=== PATIENT | male | born 1935 | race Caucasian/White ===

== ENCOUNTER 2018-09-07 14:08 | Observation (INO) | payer OTHER ==
[~2018-09-07] VITALS: Ht 177.8 cm; Wt 55.5 kg
[~2018-09-07 14:08] MED LIST: ALBU90OI6 INH; ALPR.5 PO; AMIT10 PO; CARB100 PO; CARBLEV25 PO; CHOL10002; Calicum 500+D1 EACH PO; DIAZ5 PO; FINA5 PO; FISH1000 PO; HYDCHL50 PO; LEVCAR25ER PO; LOSA25 PO; LOSARTAN-HCTZ1 EAC1 PO; LOSHYD100 PO; OXYB5 PO; RAPAFLO 8MG; RAPAFLO PO; STALEVO; TERB250 PO; TIOT18 IH; VENL25 PO
[2018-09-07 14:39] LABS: BASOPHILS ABSOLUTE AUTO 0.02 K/mm3 (0.00-0.23); BASOPHILS PERCENT AUTO 0 % (0-2); EOSINOPHILS ABSOLUTE AUTO 0.12 K/mm3 (0.00-0.68); EOSINOPHILS PERCENT AUTO 2 % (0-6); Hematocrit 35.8 % (37.0-53.0); Hemoglobin 11.4 g/dL (13.5-17.5); IMMATURE GRAN ABSOLUTE AUTO 0.01 K/mm3 (0.00-0.10); IMMATURE GRAN PERCENT AUTO 0 % (0-1); LYMPHOCYTES ABSOLUTE AUTO 0.95 K/mm3 (0.84-5.20); LYMPHOCYTES PERCENT AUTO 17 % (21-46); MONOCYTES ABSOLUTE AUTO 0.34 K/mm3 (0.16-1.47); MONOCYTES PERCENT AUTO 6 % (4-13); Mean Corpuscular HGB 30.9 pg (26.0-34.0); Mean Corpuscular HGB Conc 31.8 g/dL (31.5-36.5); Mean Corpuscular Volume 97 fL (80-100); Mean Platelet Volume 11.4 fL (9.1-12.4); NEUTROPHILS PERCENT AUTO 75 % (41-73); Platelet Count 197 K/mm3 (150-400); RDW Coefficient Variation 13.5 % (11.7-14.2); RDW Standard Deviation 47.8 fL (35.1-46.3); Red Blood Cell Count 3.69 M/mm3 (4.30-5.90); White Blood Cell Count 5.64 K/mm3 (4.00-11.30)
[2018-09-07 15:02] LABS: Alanine Aminotransfer (ALT/SGP 8 U/L (12-78); Albumin, Blood 3.4 g/dL (3.4-5.0); Alk Phos 63 U/L (50-136); Anion Gap 5 mmol/L (6-16); Aspartate Aminotrans (AST/SGOT 22 U/L (12-37); Bilirubin, Total 0.5 mg/dL (0.1-1.0); Blood Urea Nitrogen 21 mg/dL (8-24); Bun/Creatinine Ratio 32.6 (12.0-20.0); CO2, Blood 29 mmol/L (21-32); Calcium, Blood 9.1 mg/dL (8.5-10.1); Chloride, Blood 106 mmol/L (98-108); Creatinine, Blood 0.65 mg/dL (0.60-1.20); Globulin, Blood 3.5 g/dL (2.2-4.0); Glomerular Filtration Rate >60 (60-); Glucose, Blood 116 mg/dL (70-99); Potassium, Blood 4.4 mmol/L (3.5-5.5); Sodium, Blood 140 mmol/L (136-145); Total Protein, Blood 6.9 g/dL (6.4-8.2); Troponin I <0.015 ng/mL (0.000-0.040)
[2018-09-07] MEDS ORDERED: CARBLEV250 SL (16:10)
[2018-09-07] MEDS ORDERED: TAMS.4ER PO (16:12)
[2018-09-07] MEDS ORDERED: SINEMET 25-1001 EACH PO ×2 (16:12→18:17)
[2018-09-07] MEDS ORDERED: ALPR.5 PO (18:28)
[2018-09-07] MEDS ORDERED: OMEPRAZOLE MAGN20 MG PO (18:39)
[2018-09-07 20:09] LABS: Adenovirus Not Detected (NOT DETECT); Bordetella pertussis Not Detected (NOT DETECT); Chlamydophila pneumoniae Not Detected (NOT DETECT); Coronavirus 229E Not Detected (NOT DETECT); Coronavirus HKU1 Not Detected (NOT DETECT); Coronavirus NL63 Not Detected (NOT DETECT); Coronavirus OC43 Not Detected (NOT DETECT); Human Metapneumovirus Not Detected (NOT DETECT); Human Rhinovirus/Enterovirus Not Detected (NOT DETECT); Influenza A Not Detected (NOT DETECT); Influenza A/2009-H1 Not Detected (NOT DETECT); Influenza A/H1 Not Detected (NOT DETECT); Influenza A/H3 Not Detected (NOT DETECT); Influenza B Not Detected (NOT DETECT); Mycoplasma pneumoniae Not Detected (NOT DETECT); Parainfluenza Virus 1 Not Detected (NOT DETECT); Parainfluenza Virus 2 Not Detected (NOT DETECT); Parainfluenza Virus 3 Not Detected (NOT DETECT); Parainfluenza Virus 4 Not Detected (NOT DETECT); Respiratory Syncytial Virus Not Detected (NOT DETECT)
[2018-09-08 02:58] LABS: Source, Urine Clean Catch
[2018-09-08 03:05] LABS: Bilirubin, Urine Neg (Neg); Blood, Urine 1+ (Neg); Glucose Qualitative, Urine Neg (Neg); Ketones, Urine 1+ (Neg); Leukocyte Esterase, Urine Neg (Neg); Nitrite, Urine Neg (Neg); Protein, Urine Neg (Neg); Specific Gravity, Urine 1.015 (1.003-1.022); Urobilinogen, Urine NORM (Normal)
[2018-09-08 03:17] LABS: Appearance, Urine Clear (Clear); Color, Urine Pale Yellow (P-Yellow)
[2018-09-08 03:18] LABS: Bacteria Not Seen /hpf; Mucus Light (0-Heavy); Red Blood Cells, Urine 0-2 /hpf (0-2); Squamous Epithelial Cells Not Seen /hpf (Few); White Blood Cells, Urine Not Seen /hpf (0-5)
--- NOTE | 2018-09-08 03:56 | NUR ---
SHIFT SUMMARY PT NEW ED ADMIT THIS EVENING. VERY SLEEPY WHEN FIRST ARRIVING TO ROOM. HOWEVER LATER IN THE EVENING PT WOKE AND WAS VERY ALERT. PLEASANT AND COOPERTIVE. PT CONFUSED AND RESPONDS SLOW, FAMILY REPORTS THAT THIS IS PT'S BASELINE. PT ONLY ORIETED TO SELF AND FAMILY THIS EVENING. PT SLEPT WELL THIS EVENING. DENIED ANY CHEST PAIN OR PRESSURE. TELEMETRY SR W/ PAC'S IN THE 80'S. PT STOOD USING FWW TO USE THE URINAL. SOME WEAKNESS BUT MOSTLY STEADY. CONTINENT SO FAR THIS EVENING. PT RESTING AT THIS TIME. VSS. WILL CONTIUE TO MONITOR.
[2018-09-08 05:16] LABS: Hematocrit 35.2 % (37.0-53.0); Hemoglobin 11.2 g/dL (13.5-17.5); Mean Corpuscular HGB 31.2 pg (26.0-34.0); Mean Corpuscular HGB Conc 31.8 g/dL (31.5-36.5); Mean Corpuscular Volume 98 fL (80-100); Mean Platelet Volume 10.3 fL (9.1-12.4); Platelet Count 142 K/mm3 (150-400); RDW Coefficient Variation 13.3 % (11.7-14.2); RDW Standard Deviation 47.9 fL (35.1-46.3); Red Blood Cell Count 3.59 M/mm3 (4.30-5.90); White Blood Cell Count 10.17 K/mm3 (4.00-11.30)
[2018-09-08 05:41] LABS: Anion Gap 8 mmol/L (6-16); Blood Urea Nitrogen 16 mg/dL (8-24); Bun/Creatinine Ratio 25.6 (12.0-20.0); CO2, Blood 27 mmol/L (21-32); Calcium, Blood 8.5 mg/dL (8.5-10.1); Chloride, Blood 110 mmol/L (98-108); Creatinine, Blood 0.63 mg/dL (0.60-1.20); Glomerular Filtration Rate >60 (60-); Glucose, Blood 82 mg/dL (70-99); Sodium, Blood 145 mmol/L (136-145)
[2018-09-08 05:43] LABS: Troponin I <0.015 ng/mL (0.000-0.040)
--- NOTE | 2018-09-08 15:00 | NUR ---
Initial palliative care consult: Mahendra is an 82 year old with a history of Parkinson's, anxiety, HTN, BPH, and depression. He was admitted to [facility] yesterday with increasing weakness and difficulty swallowing. His , Maritza, and dtr, Marguerite, are at his bedside. Mahendra was diagnosed with Parkinson's more than 12 years ago per family[address] Dr. Matias is his doctor who manages his Parkinson's. Mahendra lives at home with his and adult son. His is his primary caregiver. Mahendra has good days and bad days. On good days, he is able to help out with breakfast and dinner dishes and unload the special agent. On bad days it is difficult for him to get OOB. Family reports a decline in the last month, especially the last week. He is sleeping more and spending 50-75% of his time sitting in his chair. He needs assistance with bathing and dressing, meal prep and ambulation. He is able to feed himself on most days although family reports the last few days prior to this admission that they have had to feed him. Family reports a decline in overall function over the past 6 months. He is having trouble with swallowing, especially pills. At home he takes his meds whole with yogurt and family reports that sometimes taking his meds may take 20-30 minutes. Family reports they notice that he coughs when he drinks water recently. also reports increased coughin in the mornings when he wakes up. Mahendra ambulates short distances with a walker and has had falls in the past. His walks behind him as his balance is not always good. He has had home health services in the past, however he became anxious prior to the therapy visits in the past per family report. He gets up at night to use the bathroom, sometimes if he sleeps through the night he is incontinent. Family has questions about options for care at this time. Their goal is to keep him home and care for him. Maritza reports they would qualify for state assistance but they are unable to pay private caregivers. Discussed Parkinson's disease trajectory and answered questions. Dr. Rios visited during the assessment and reports that pt's cardiac labwork is all normal. He will order a swallow eval and additional testing to rule out any causes that are contributing to Mahendra's increase weakness, fatigue and swallowing difficulties. He sypmtoms are likely due to the progression of his Parkinson's disease. Discussed options for treatment ie: neurologist input for medication management, peg tube placement, therapy and HH/hospice options. Maritza and Marguerite are interested in more information re: hospice and Parkinson's. Hospice brochure and considering comfort care booklet given along with pre preprinted materials from [employer] on Parkinson's disease. PPS score = 40-50% PC to follow up with pt and family after testing is complete to answer questions and help with advanced care planning.
--- NOTE | 2018-09-09 04:08 | NUR ---
SHIFT SUMMARY NO ACUTE CHANGES. PT ANXIOUS AT START OF SHIFT FOR FAMILY TO LEAVE FOR THE NIGHT. MEDICATED W/ HOME DOSE OF XANAX. PT SLEPT WELL THROUGHOUT THE NIGHT FOLLOWING. DENIED ANY CHEST HEAVINESS OR DISCOMFORT. NO NONVERBAL S/S OF PAIN OR DISCOMFORT. PT MUCH MORE ALERT THIS EVENING WHEN AWAKE. CONTINUES TO HAVE SOME BASELINE INTERMITTENT CONFUSION AND IS SLOW TO RESPOND. PILLS CRUSED IN APPLESAUCE, PT TOLERATED WELL. SWALLOWS SLOWLY. MILD TREMOR WITH PT'S HX OF PARKINSON'S. PT REMAINED ON RA AND DID NOT APPEAR SOB. RESPIRATIONS EVEN AND UNLABORED. NEW ORDERS FOR ROCEPHIN AND FLAGYL. BOTH GIVEN THIS EVENING. OTHERWISE VSS. WILL CONTINUE TO MONITOR AND REPORT TO DAY RN.
[2018-09-09 05:32] LABS: BASOPHILS ABSOLUTE AUTO 0.02 K/mm3 (0.00-0.23); BASOPHILS PERCENT AUTO 0 % (0-2); EOSINOPHILS PERCENT AUTO 2 % (0-6); Hemoglobin 10.4 g/dL (13.5-17.5); IMMATURE GRAN ABSOLUTE AUTO 0.01 K/mm3 (0.00-0.10); IMMATURE GRAN PERCENT AUTO 0 % (0-1); LYMPHOCYTES PERCENT AUTO 18 % (21-46); MONOCYTES ABSOLUTE AUTO 0.33 K/mm3 (0.16-1.47); MONOCYTES PERCENT AUTO 7 % (4-13); Mean Corpuscular HGB 30.5 pg (26.0-34.0); Mean Corpuscular HGB Conc 31.5 g/dL (31.5-36.5); Mean Corpuscular Volume 97 fL (80-100); Mean Platelet Volume 10.5 fL (9.1-12.4); NEUTROPHILS ABSOLUTE AUTO 3.53 K/mm3 (1.96-9.15); NEUTROPHILS PERCENT AUTO 72 % (41-73); Platelet Count 148 K/mm3 (150-400); RDW Coefficient Variation 13.4 % (11.7-14.2); Red Blood Cell Count 3.41 M/mm3 (4.30-5.90); White Blood Cell Count 4.89 K/mm3 (4.00-11.30)
[2018-09-09 06:07] LABS: Anion Gap 3 mmol/L (6-16); Blood Urea Nitrogen 14 mg/dL (8-24); Bun/Creatinine Ratio 21.3 (12.0-20.0); CO2, Blood 31 mmol/L (21-32); Calcium, Blood 8.7 mg/dL (8.5-10.1); Chloride, Blood 108 mmol/L (98-108); Creatinine, Blood 0.66 mg/dL (0.60-1.20); Glomerular Filtration Rate >60 (60-); Glucose, Blood 96 mg/dL (70-99); Potassium, Blood 4.3 mmol/L (3.5-5.5); Sodium, Blood 142 mmol/L (136-145)
--- NOTE | 2018-09-09 11:58 | NUR ---
Spiritual care visit conducted. Patient was lying in bed and alert with , Maritza, and friend, Iain, bedside. Patient is kind and warm and shows great courage as he has struggled with Parkinson's Disease for the last 12 years. Patient talks slowly and quiety but uses his words to express gratitude and encouragement. I listened to patient tell about his life/family history, about his spiritual journey and about his current medical issues (with Maritza helping fill in the details and helping him articulate what he is trying to say). I listened empathically, provided an anointing and prayer and provided emotional support. Patient responded well and voiced appreciation for my visit.
--- NOTE | 2018-09-09 16:30 | NUR ---
Clinical Visit: Pt is walking with supervision and assistance from his family. Daughter and are present. Reviewed plan of discharge. They agree that they will have hospice assistance at home. They are planning on doing [facility]. I provided a booklet of information for them. It is a great resource that outlines the best possible ways to assist with care at home for a family member physically and spiritually. They do not have additional questions at this time. Pt discharging today.
[2018-09-09] MEDS ORDERED: Augmentin 875-1 EACH PO (17:13)
--- NOTE | 2018-09-09 17:38 | NUR ---
DISCHARGE NOTE PT'S IV REMOVED WNL. PT'S MEDICATIONS FAXED TO PREFERED PHARMACY. PT'S TELEMETRY DC'D. PT PROVIDED WITH VERBAL AND HARDCOPY DISCHARGE INSTRUCTIONS, DIAGNOSES, FOLLOW UP APPOINTMENTS, MEDICATIONS. PT AND FAMILY HAD NO FURTHER QUESTIONS. PT ESCORTED VIA WHEELCHAIR BY NURSING STAFF TO PRIVATE VEHICLE
== END 2018-09-09 17:45 | disposition home or self-care (01) ==
LOC: ER 14:08 → MEDS 14:09
PROVIDERS: Emergency Medicine; Family Medicine; Nurse Practitioner Acute Care; ADMIT Hospitalist
DX: J69.0 Pneumonitis due to inhalation of food and vomit (principal); R53.1 Weakness; R79.1 Abnormal coagulation profile; G20 Parkinson's disease; F41.1 Generalized anxiety disorder; I10 Essential (primary) hypertension; N40.0 Benign prostatic hyperplasia without lower urinary tract symptoms; F32.9 Major depressive disorder, single episode, unspecified; Z79.899 Other long term (current) drug therapy
CPT/HCPCS: 36415; 51798; 71046; 71260; 80048; 80053; 81001; 82306; 83880; 84443; 84484; 85025; 85027; 85379; 87486; 87581; 87633; 87798; 92610; 93005; 93010; 96374; 96375; 97116; 97161; 97166; 97530; 99285-25; J0696; J1170; J1650; J2405; J7030; Q9967

== ENCOUNTER 2018-11-10 13:50 | Emergency (ER) | payer OTHER ==
[~2018-11-10] VITALS: Ht 177.8 cm; Wt 49.9 kg
[~2018-11-10 13:50] MED LIST changes: +Augmentin 875-1 EACH PO; +CARBLEV250 SL; +OMEPRAZOLE MAGN20 MG PO; +SINEMET 25-1001 EACH PO; +Sinemet 25-1001 EACH PO; +TAMS.4ER PO
== END 2018-11-10 17:36 | disposition home or self-care (01) ==
LOC: ER 13:50
DX: S72.052A Unspecified fracture of head of left femur, initial encounter for closed fracture (principal); S72.002A Fracture of unspecified part of neck of left femur, initial encounter for closed fracture; W01.198A Fall on same level from slipping, tripping and stumbling with subsequent striking against other object, initial encounter; Z51.5 Encounter for palliative care; Z79.899 Other long term (current) drug therapy; G20 Parkinson's disease; J44.9 Chronic obstructive pulmonary disease, unspecified
CPT/HCPCS: 51702; 73502; 99283-25